=== PATIENT | female | born 1960 | race Two or more races ===

== ENCOUNTER 2024-07-09 15:10 | Outpatient (REF) | payer SELFPAY ==
[2024-07-09 16:19] LABS: MANUAL DIFF FLAG NO
[2024-07-09 16:23] LABS: Basophils Absolute Auto 0.1 X10*3/uL (0.0-0.2); Basophils Percent Auto 0.7 % (0-2); Eosinophils Absolute Auto 0.1 X10*3/uL (0.0-0.4); Eosinophils Percent Auto 1.4 % (0-4); Hematocrit 44.1 % (37.0-47.0); Hemoglobin 14.5 g/dl (12.0-16.0); Imm Gran Abs Auto 0.03 X10*3/uL (0.00-0.03); Imm Gran Pct Auto 0.4 % (0.0-0.4); Lymphocytes Absolute Auto 3.2 X10*3/uL (1.2-4.9); Lymphocytes Percent Auto 40.1 % (20-40); Mean Corpuscular HGB Conc 32.9 g/dl (31.0-35.0); Mean Corpuscular Hemoglobin 28.7 pg (27.0-33.0); Mean Corpuscular Volume 87.3 fL (80.0-98.0); Mean Platelet Volume 10.3 fL (9.4-12.3); Monocytes Absolute Auto 0.5 X10*3/uL (0.1-1.2); Monocytes Percent Auto 5.7 % (2-11); Neutrophils Absolute Auto 4.1 x10*3/uL (2.0-8.3); Neutrophils Percent Auto 51.7 % (45-73); Platelet Count 320 X10*3/uL (160-400); Red Blood Count 5.05 X10*6/uL (4.20-5.50)
[2024-07-09 16:40] LABS: Iron 90 mcg/dL (30-160); Percent Iron Saturation 33 % (15-50); Total Iron Binding Capacity 269 mcg/dL (228-428); Unsaturated Iron Binding 179 ug/dL
[2024-07-09 16:56] LABS: Ferritin 145 ng/mL (10-250)
[2024-07-09 17:10] LABS: Folate 15.3 ng/mL (> or = 4.0)
== END 2024-07-09 15:11 | disposition home or self-care (01) ==
LOC: HO.HHCL 15:10
PROVIDERS: Visit Provider Emergency Medicine
DX: K21.9 Gastro-esophageal reflux disease without esophagitis (principal); E61.1 Iron deficiency
CPT/HCPCS: 36415; 82728; 82746; 83540; 85025

== ENCOUNTER 2024-07-14 13:41 | Outpatient (REF) | payer MEDICAID, SELFPAY | END 2024-07-14 13:42 | disposition home or self-care (01) | LOC: HO.HHCLNP 13:41 | PROVIDERS: Visit Provider Emergency Medicine | DX: K21.9 Gastro-esophageal reflux disease without esophagitis (principal) | CPT/HCPCS: 87338 ==

== ENCOUNTER 2024-11-17 08:56 | Outpatient (AMB) | payer MEDICAID, SELFPAY ==
--- NOTE | 2024-11-17 08:57 | MHC.OFFVIS ---
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 Intake Note: New patient dx chest pain c/o chest pain for over year with our without activity last a few minutes and at times lasting longer Biology Specimen Technician Required: Yes Biology Specimen Technician Services: Biology Specimen Technician Offered & Declined Fish And Wildlife Scientific Aid: Fish And Wildlife Scientific Aid Present Accompanied by: Son Allergies Sulfa (Sulfonamide Antibiotics) Allergy (Mild, Verified 11/17/24 09:07) rash Medication List - Last Reconciled 11/17/24 by Patrick Anglin MD cholecalciferol (vitamin D3) 25 mcg PO DAILY hydrochlorothiazide 25 mg PO DAILY HPI Comments Details: Val is referred here for symptoms of chest pain and palpitations. She was 64-year-old female who since last February has been having symptoms of chest pain or palpitation. She was here with her son who will be an tip finisher and they declined a certified tip finisher. Patient says since February she has been having intermittent episodes of palpitations. Symptoms are described fast heart rate that happen randomly at rest. Symptoms can last for 5 minutes. Usually she relaxes and the symptoms subside. She also gets associated chest pressure. She also otherwise randomly gets retrosternal chest pressure at rest and with exercise. She was then diagnose with hypertension and a blood pressure has been better controlled and symptoms have improved although she continues to have these symptoms she was referred here for further evaluation. She says a blood pressure still remains elevated with occasionally blood pressure reading up to 150/100. However there was no correlation to blood pressure and her symptoms at this point in time. She denies any lightheadedness, syncope. Denies any orthopnea, PND, leg edema. She had some testing done in [place] and she is very unclear about the results. 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 [facility] Medical History (Updated 11/17/24 @ 09:35 by Patrick Anglin MD) HTN (hypertension) Surgical History Hx of hernia repair Family History Father CAD (coronary artery disease) Diabetes Mother Alzheimer dementia HTN (hypertension) Social History Patient Tobacco Use Status: Never used Tobacco Review of Systems Const Denies chills, Denies daytime sleepiness, Denies fatigue, Denies fever(s), Denies frequent falls, Denies poor appetite, Denies snoring, Denies stops breathing during sleep, Denies weakness, Denies weight gain and Denies weight loss Eyes Denies loss of vision ENT Denies dizziness and Denies hearing loss Card Reports chest pain, Denies claudication, Denies leg edema, Denies lightheadedness, Reports palpitations, Denies dyspnea, Denies dyspnea on exertion and Denies orthopnea Resp Denies cough, Denies excessive phlegm production, Denies dyspnea, Denies dyspnea on exertion, Denies snoring and Denies wheezing GI Denies abdominal pain, Denies hematochezia, Denies change in bowel habits, Denies nausea and Denies vomiting Denies urinary frequency and Denies dysuria Musc Denies arthralgias, Denies muscle weakness, Denies numbness and Denies other (frequent falls) Skin/Breast Denies nail changes and Denies rash Neuro Denies Abnormal speech present, Denies dizziness, Denies frequent falls, Denies loss of vision, Denies memory loss, Denies numbness and Denies weakness Psych Denies depression and Denies memory loss Endo Denies fatigue and Reports palpitations Neeraj/Lymph Reports easy bruising and Reports other (anemia) Aller/Immun Denies wheezing Physical Exam Vital Signs: Last Vital Signs Pulse 91 11/17/24 09:00 BP 120/72 11/17/24 09:00 BMI result Body Mass Index 24.9 Const General: cooperative, comfortable, no acute distress, well developed, alert, awake and Physically active Nutritional Appearance: average body habitus Orientation/consciousness: patient oriented x3 Limitations: no limitations HEENT Head: Yes normocephalic and Yes atraumatic Neck Neck: Yes trachea midline, Yes supple and Yes no JVD Resp Effort & Inspection: normal respiratory effort Auscultation: clear to auscultation bilaterally Cardio Jugular venous distension: no JVD Palpation: normal PMI Rate: regular rate Rhythm: regular rhythm Heart sounds: S1 normal heart sound present, S2 normal heart sound present, no click, no gallops, no murmurs and no rubs GI Auscultation: normal bowel sounds Skin General skin exam: no rashes or lesions noted Neuro General: patient oriented x3 and no focal motor deficits Speech: No Abnormal speech present Extrem General: Yes no clubbing, cyanosis or edema Psych Appearance: grossly normal Assessment & Plan Assessment & Plan (1) Chest pain: Code(s): R07.9 - Chest pain, unspecified Category: Medical Plan: Patient with chest pain syndrome with both typical and atypical features. He is very difficult to a certain whether she was underlying significant coronary artery disease. At this point time given her baseline normal EKG I would suggest her to undergo treadmill stress test in near future to assess for her symptoms. Also allow us to see what exercise capacity is in his there is any evidence of EKG changes that would suggest myocardial ischemia. This was discussed with her. She understands and agrees. Will try to review your echocardiogram performed in [place] although his mitral repeat her ultrasound to get a good ideas to underlying structural heart disease. This was discussed with her. Continue current blood pressure control which is well optimized on today's exam. Advised to continue monitor blood pressure if she remains persistently elevated may need addition of angiotensin receptor blockers for better control of blood pressure. Low-salt diet was discussed. (2) Palpitations: Code(s): R00.2 - Palpitations Category: Medical Plan: Symptoms of palpitation which are started since February. Do not appear to be stress related. Possible differential diagnose include SVT and/or atrial fibrillation. Also could represent sinus tachycardia which would be inappropriate. Will suggest a 7 day Holter monitor to further assess for the same. Further treatment based on the findings. Will not start any pharmacotherapy to we have an established diagnosis. Will follow up in the clinic in 3 weeks' time, sooner p.r.n.. Thank you for allowing me to partake in her care Coding Level of Care Code New Pt Level 4 (46797) Complex EM visit Add On G2211 Diagnoses Chest pain R07.9 Palpitations R00.2
[2024-11-17 09:00] VITALS: BP 120/72; PULSE 91; BMI 24.9
--- OUTSIDE RECORDS SUMMARY | 2024-11-17 09:47 | XMS_ITS | Clinical Summary ---
Author Organization [employer] Address [address] [place] [address] Care Team Providers Care Counsel Name Role Phone Unavailable Primary Care Provider Unavailabl e Allergies No known active allergies Medications Blood Pressure kit 1 each 2 times daily. 1 kit 4 07/09/20 25 Active cholecalciferol (Vitamin D-3) 25 MCG (1000 UT) tablet Take 1 tablet (25 mcg) by mouth Once per day. 30 tablet 5 4 Active lidocaine (Lidoderm) 5 % patch Apply 1 patch topically Once per day. Remove & discard patch within 12 hours or as directed by MD. 30 patch 2 4 07/09/20 25 Active acetaminophen (Tylenol) 500 MG tablet Take 2 tablets (1,000 mg) by mouth every 6 (six) hours if needed for moderate pain or fever for up to 25 doses. 50 tablet 4 Active hydroCHLOROthiazi de (HYDRODiuril) 25 MG tabletIndications :Primary hypertension Take 1 tablet (25 mg) by mouth Once per day. 30 tablet 11 4 07/25/20 25 Active Active Problems Problem Noted Date Diagnosed Date Primary hypertension 07/25/2024 Assessment & Plan (07/25/2024 4:25 PM EST): I will start her on hydrochlorothiazide 25mg daily, I instruct her to log her BP and come back for nurse visit if BP is not at goal plan is to increase hydrochlorothiazide to 50mg I advised: - Aerobic exercise to reduce BP. Initial goal of 30 min walk 3-5x/week. Increase as tolerated. - low-sodium diet (goal: <2g/day) and heart healthy diet such as DASH to reduce BP and prevent ASCVD. - Home BP monitoring 1-2 x day with goal of <140/90. - Seek immediate medical attention for chest pain, palpitations, SOB, syncope, or sudden changes in mental status. - Do not change or discontinue current prescriptions without first consulting health care provider Clogged ear, bilateral 07/25/2024 Assessment & Plan (07/25/2024 4:25 PM EST): On physical exam ears where completely clogged I prescribed debrox plan is to f/u with nurse for ear lavage Viral URI 07/25/2024 Assessment & Plan (07/25/2024 4:26 PM EST): Drink plenty of fluids and rest H/O unilateral oophorectomy 07/09/2024 Vitamin D deficiency 07/09/2024 Iron deficiency 07/09/2024 GERD (gastroesophageal reflux disease) Hypercholesterolemia 07/09/2024 Encounters Date Type Department Care Team Description 10/24/2024 Population Health Risk Score Community [facility] ([facility]) Department [address] [place] [id number] Provider, Population Health Generic from Last 3 Months Immunizations Name Administration Dates Next Due Zoster, Recombinant 10/27/2024 Social History Tobacco Use Types Packs/Day Years Used Date Smoking Tobacco: Never Smokeless Tobacco: Never Tobacco Cessation:Counseling Given: Not Answered Comments Unknown Sex and Gender Information Value Date Recorded Sex Assigned at Female 07/09/2024 12:33 PM EST Legal Sex Female 2:37 PM EST Gender Identity Female 07/09/2024 12:33 PM EST Sexual Orientation Straight 07/09/2024 12 :33 PM EST Last Filed Vital Signs Vital Sign Reading Time Taken Comments Blood Pressure 150/92 07/25/2024 1:44 PM EST Pulse 98 07/25/2024 1:38 PM EST Temperature 36.2 ??C (97.2 ??F) 07/25/2024 1:38 PM ES T Respiratory Rate 17 07/09/2024 1:56 PM EST Oxygen Saturation 98% 07/25/2024 1:38 PM EST Inhaled Oxygen Concentration - - Weight 71.9 kg (158 lb 9.6 oz) 07/09/2024 1:56 P M EST Height - - Body Mass Index - - Plan of Treatment Upcoming Encounters Date Type Department Care Team ([facility]ell st Contact Info) Description 12/30/2024 11:30 AM EDT Nurse Only [address] [address] Health Maintenance Due Date Last Done Comments CT Colonography 1962 Colonoscopy 1962 Colorectal Cancer Screening 1962 Depression Screening 1962 FIT DNA/Cologuard 1962 FIT 1962 FOBT 1962 HIV Screening 1962 Lipid Panel 1962 SDOH Screening 1962 Sigmoidoscopy 1962 Alcohol/Substance Use Screening 1974 Hepatitis C Screening 1980 DTaP/Tdap/Td Vaccines (1 - Tdap) 1981 Pap Smear 1983 Cervical Cancer Screening 1992 HPV/Cotest 1992 Mammogram 2002 Pneumococcal Vaccine: 50+ Ye ars (1 of 1 - PCV) 2012 COVID-19 Vaccine ( - 2023-2 5 season) 2024 Influenza Vaccine (#1) 2024 Zoster Vaccines (2 of 2) 12/22/2024 10/27/2024 Tobacco Screening 07/09/2025 07/09/2024 RSV Patients and Pa tients Aged 60 years or older (1 - 1-dose 75+ series) 2037 HIB Vaccines Aged Out No longer eligi ble based on patient's age to complete this topic HPV Vaccines Aged Out No longer eligi ble based on patient's age to complete this topic Hepatitis A Vaccines Aged Out No long er eligible based on patient's age to complete this topic Hepatitis B Vaccines Aged Out No long er eligible based on patient's age to complete this topic IPV Vaccines Aged Out No longer eligi ble based on patient's age to complete this topic Meningococcal Vaccine Aged Out No maria del carmen rm eligible based on patient's age to complete this topic RSV under 20 months Aged Out No longe r eligible based on patient's age to complete this topic Rotavirus Vaccines Aged Out No longer eligible based on patient's age to complete this topic Insurance [facility] C3
== END 2024-11-17 09:39 | disposition home or self-care (01) ==
PROVIDERS: PCP Emergency Medicine; Visit Provider Internal Medicine Cardiovascular Disease
DX: R07.9 Chest pain, unspecified (principal); R00.2 Palpitations
CPT/HCPCS: 99204

== ENCOUNTER → 2024-11-17 08:56 | Outpatient (BNVA) | payer MEDICAID, SELFPAY | PROVIDERS: PCP Emergency Medicine; Visit Provider Internal Medicine Cardiovascular Disease | DX: R07.9 Chest pain, unspecified (principal); R00.2 Palpitations; I10 Essential (primary) hypertension | CPT/HCPCS: 99202 ==

== ENCOUNTER 2024-11-19 06:49 | Outpatient (REF) | payer MEDICAID, SELFPAY ==
--- OUTSIDE RECORDS SUMMARY | 2024-11-19 06:51 | XMS_ITS | Clinical Summary ---
Author Organization [employer] Address [address] [place] [address] Care Team Providers Care Leaf Conditioner Name Role Phone Unavailable Primary Care Provider [...] Description 10/24/2024 Population Health Risk Score Community [facility] (C[facility]) Department [address] [place] [id number] Provider, Population Health Generic from Last [...] Description 12/30/2024 11:30 AM EDT Nurse Only [address] [address] Health Maintenance Due Date Last Done Comments [...] patient's age to complete this topic Insurance [facility] C3
[2024-11-19 07:53] LABS: Cholesterol 227 mg/dL (<200); HDL Cholesterol 55 mg/dL (>40); LDL Cholesterol Calculated 145 mg/dL (<100); Triglycerides 139 mg/dL (<150)
== END 2024-11-19 06:50 | disposition home or self-care (01) ==
LOC: HO.LAB 06:49
PROVIDERS: PCP Emergency Medicine; Visit Provider Internal Medicine Cardiovascular Disease
DX: I10 Essential (primary) hypertension (principal)
CPT/HCPCS: 36415; 80061

== ENCOUNTER → 2024-12-09 09:00 | Outpatient (REF) | payer MEDICAID, SELFPAY ==
--- NOTE | 2024-12-09 09:08 | CA_ITS ---
Acquisition Time: 2024-12-09 09:25:44 Total Exercise Time: 00:06:30 Test Indications: CP Medications: SEE H&P Protocol: AMBIKA Max HR: 148 BPM 93% of Pred: 158 BPM Max BP: 138/86 mmHG Max Work Load: 7.7 METS Exercise stress test with exercise 6 mins 30 secs of Ambika Protocl, achieving 91% MPHR, with reports of mild SOB, no chest pain, with isolated PVC, with normotensive response to exercise. Without EKG changes meeting criteria for ischemia. In recovery, breathing returned to baseline. Test reviewed with Dr. Cali. Referred By: Patrick Anglin Electronically Signed By: Sal Aponte
--- OUTSIDE RECORDS SUMMARY | 2024-12-09 09:35 | XMS_ITS | Clinical Summary ---
Author Organization [employer] Address [address] [place] [address] Care Team Providers Care Supervisor Ditching Name Role Phone Unavailable Primary Care Provider [...] Encounters Date Type Department Care Team Description 11/19/2024 Orders Only GENERIC EXTERNAL DATA DEPARTMENT Provider, Generic External Data 10/24/[address] [facility] () Department [address] [place] [id number] Provider, Population Health Generic from Last [...] Upcoming Encounters Date Type Department Care Team (Late st Contact Info) Description 12/30/2024 11:30 AM EDT Nurse Only [address] [address] Health Maintenance Due Date Last Done Comments CT Colonography 1962 Colonoscopy 1962 Colorectal Cancer Screening 1962 Depression Screening 1962 FIT DNA/Cologuard 1962 FIT 1962 FOBT 1962 HIV Screening 1962 SDOH Screening 1962 Sigmoidoscopy 1962 Alcohol/Substance [...] 2) 12/22/2024 10/27/2024 Tobacco Screening 07/09/2025 07/09/2024 Lipid Panel 11/19/2029 11/19/2024 RSV Patients and Pa tients Aged 60 [...] on patient's age to complete this topic Procedures Procedure Name Priority Date/Time Associated Diagnosis Comments LIPID PANEL, STANDARD Routine 11/19/2024 6:55 AM EDT from Last 3 Months Results * (ABNORMAL) Lipid Panel, Standard (11/19/2024 6:55 AM EDT) Triglycerides 139 <150 mg/dL [facility] Comment:Desirable Triglyceri de: less than 150 mg/dLBorderline High Triglyceride 150-199 mg/dLHigh Triglyceride: 200-499 mg/dLVery High Triglyceride: greater than or equal to 5OO mg/dL Cholesterol 227(H) <200 mg/dL [facility] Comment:Desirable Cholestero l: less than 200 mg/dLBorderline High Cholesterol: 200-239 mg/dLHigh Cholesterol: greater than 239 mg/dL LDL Cholesterol Calculated 145(H) <100 mg/dL [facility] Comment:Desirable LDL: less than 100 mg/dLNear Optimal/Above Optimal LDL: 110- 129 mg/dLBorderline High LDL: 130-159 mg/dLHigh LDL: 160-189 mg/dLVery High LDL: greater than or equal to 190 mg/dL HDL Cholesterol 55 >40 mg/dL [facility] Comment:Desirable HDL: great er than 40 mg/dL Note: This HDL assay may give artificially low results in patients with liver disease. 11/19/2024 6:55 AM EDT 11/19/2024 6:55 AM EDT us Generic External Data Provider LAB BLOOD ORDERAB LES Final Result [facility] [address] [place] [phone] from Last 3 Months Insurance [facility] C3
== END ==
LOC: HO.CARD 09:00
PROVIDERS: PCP Emergency Medicine; Visit Provider Internal Medicine Cardiovascular Disease
DX: R07.9 Chest pain, unspecified (principal); R00.2 Palpitations
CPT/HCPCS: 93017; 93242

== ENCOUNTER → 2024-12-09 09:08 | Outpatient (BNV) | payer MEDICAID, SELFPAY | PROVIDERS: PCP Emergency Medicine | DX: I49.3 Ventricular premature depolarization (principal) | CPT/HCPCS: 93016; 93018 ==

== ENCOUNTER 2024-12-25 12:46 | Outpatient (AMB) | payer MEDICAID, SELFPAY ==
[2024-12-25 13:03] VITALS: BP 122/60; PULSE 78; BMI 25.3
--- NOTE | 2024-12-25 13:03 | A.OFFVIS_ITS ---
Vital Signs 12/25/24 13:03 Height 5 ft 6 in Weight 156 lb 8.451 oz BMI 25.3 BP 122/60 Blood Pressure Location Lt brachial Position Sitting Pulse 78 Pulse Source Pulse Oximeter Intake Visit Reasons: r/s 12/09/24 3wks s/p ett/7 days NS Farm Marketer Required: Yes Farm Marketer Name: MARLY [id number] Allergies Iodinated Contrast Media Allergy (Severe, Verified 12/25/24 14:28) Facial Swelling Sulfa (Sulfonamide Antibiotics) Allergy (Mild, Verified 11/17/24 09:07) rash Medication List - Last Reconciled 12/25/24 by Sal Aponte NP cholecalciferol (vitamin D3) 25 mcg PO DAILY hydrochlorothiazide 25 mg PO DAILY HPI Comments Details: This is a 64-year-old female patient presenting for a follow-up visit. Patient is Citizen Of [place]-speaking and an web developer programmer was used throughout the visit. Patient with a history of hypertension and was previously evaluated for palpitations and chest discomfort. Since her last visit, she has undergone a Holter monitor and a stress test. Patient had an echo study in [place] a year ago. She reports ongoing left-sided chest discomfort primarily occurring at rest but also occasionally with exertion. This is accompanied by dizziness. She notes some improvement in her palpitations since her last visit. Patient is denying any orthopnea, PND, leg edema, presyncope, or syncope. Patient states that she is compliant with the medications. [facility] Medical History HTN (hypertension) Surgical History Hx of hernia repair Family History Father CAD (coronary artery disease) Diabetes Mother Alzheimer dementia HTN (hypertension) Social History Patient Tobacco Use Status: Never used Tobacco Review of Systems Const Denies weakness ENT Denies dizziness Card Denies chest pain, Denies chest pain with activity, Denies syncope, Denies rapid heart rate, Denies pedal edema, Denies edema, Denies leg edema, Denies lightheadedness, Denies palpitations, Denies dyspnea, Denies dyspnea on exertion and Denies orthopnea Resp Denies cough, Denies dyspnea and Denies dyspnea on exertion GI Denies hematochezia and Denies change in stool character Musc Denies abnormal gait, Denies muscle cramps, Denies muscle weakness, Denies numbness, Denies radiating pain into limb and Denies tingling Neuro Denies abnormal gait, Denies dizziness, Denies syncope, Denies numbness, Denies tingling and Denies weakness Endo Denies palpitations Physical Exam Vital Signs: Last Vital Signs Pulse 78 12/25/24 13:03 BP 122/60 12/25/24 13:03 BMI result Body Mass Index 25.3 Const General: cooperative, healthy appearing, comfortable and no acute distress Orientation/consciousness: patient oriented x3 HEENT Head: Yes normal to inspection Neck Neck: Yes normal visual inspection, Yes trachea midline and Yes supple Chest Chest palpation & inspection: normal inspection of the chest Resp Effort & Inspection: normal respiratory effort Auscultation: clear to auscultation bilaterally, no crackles, no rales, no rhonchi and no wheezes Cardio Jugular venous distension: no JVD Palpation: normal PMI Rate: regular rate Rhythm: regular rhythm Heart sounds: S1 normal heart sound present, S2 normal heart sound present, no click, no gallops, no murmurs and no rubs Peripheral pulses: Peripheral pulses 2+ throughout GI Inspection: Yes normal to inspection Palpation (GI): Soft to palpation Auscultation: normal bowel sounds Skin General skin exam: no rashes or lesions noted Neuro General: patient oriented x3 Extrem General: Yes normal to inspection, No no pedal edema and No calf tenderness Psych Appearance: grossly normal Mental Status: mental status grossly normal Speech and movement: Normal speech and movement present Assessment & Plan Assessment & Plan (1) Chest pain: Code(s): R07.9 - Chest pain, unspecified Category: Medical Plan: 05/07/2024-patient's echo study from [place] showed normal LV systolic function with the ejection fraction at 56%, with moderate mitral regurgitation, and mild tricuspid regurgitation. 12/09/2024-patient underwent a Holter study that showed baseline normal sinus rhythm with average heart rate of 82 beats per minute, with rare ectopy. 12/09/2024-patient also underwent a treadmill stress test with moderate workload with reports of mild shortness of breath, no chest pain, no EKG changes. Given the patient's ongoing symptoms of chest pain and dizziness alongside her risk of hypertension hyperlipidemia, we will proceed with a further evaluation using a coronary CTA. Patient has a history of contrast allergy with prior facial swelling, therefore, we will premedicate using standard contrast allergy prophylaxis. In addition to this, we will obtain an updated echocardiogram to evaluate for LV systolic and diastolic function, wall motion abnormalities, and valvular pathology. (2) Dizziness: Code(s): R42 - Dizziness and giddiness Category: Medical Plan: As above. (3) Hyperlipidemia: Code(s): E78.5 - Hyperlipidemia, unspecified Category: Medical Qualifiers: Hyperlipidemia type: mixed hyperlipidemia Qualified Code(s): E78.2 - Mixed hyperlipidemia Plan: Patient recently had a lipid profile checked and had very elevated LDL. We will start her on a statin therapy. We will check her labs in 3 months. Ideally, LDL goal closer to 70. (4) HTN (hypertension): Code(s): I10 - Essential (primary) hypertension Category: Medical Qualifiers: Hypertension type: unspecified Qualified Code(s): I10 - Essential (primary) hypertension Plan: Blood pressure today is well-controlled. Continue current regimen. Advised patient to monitor blood pressures at home and keep a log of it. Ideally, blood pressure goal less than 130/80. Advised heart healthy diet, regular exercise, med compliance, adequate hydration, and management of vascular risk factors. We will follow up in 3 months. In the interim, patient will call the office with any concerns or change in symptoms. Advised patient to seek ER care in case of persistent chest pain not resolved with rest. This note was generated using voice recognition software. While every effort has been made to ensure accuracy and proper conveyor feeder offbearer, there may be occasional errors that could affect the content or meaning of the described symptoms. Orders: Orders Lipid Panel 3 Months E78.5 - Hyperlipidemia, unspecified Basic Metabolic Panel Today R07.9 - Chest pain, unspecified Liver Panel Today E78.5 - Hyperlipidemia, unspecified CT Cardiac Coronary Angio Today R07.9 - Chest pain, unspecified, R42 - Dizziness and giddiness [place] echo transthoracic complete Today R42 - Dizziness and giddiness Medications: New famotidine TAKE ONE DAY BEFORE AND THE MORNING OF PROCEDURE 20 mg PO BID 3 tabs 0RF prednisone TAKE ONE DAY BEFORE PROCEDURE AND THE MORNING OF PROCEDURE 40 mg (2 x 20 mg) PO DAILY 6 tabs 0RF atorvastatin 40 mg PO DAILY 90 tabs 3RF diphenhydramine HCl TAKE ONE DAY BEFORE PROCEDURE AND THE MORNING OF PROCEDURE 50 mg PO BID PRN 3 tabs 0RF sleep Coding Level of Care Code Est Pt Level 4 (79511) Complex EM visit Add On G2211 Diagnoses Chest pain R07.9 Dizziness R42 Mixed hyperlipidemia E78.2 Hyperlipidemia type: mixed hyperlipidemia Hypertension, unspecified type I10 Hypertension type: unspecified Time Spent (min) 34 Comment Time spent in reviewing the chart, test results, assessment, counseling and documentation.
--- OUTSIDE RECORDS SUMMARY | 2024-12-25 13:24 | XMS_ITS | Clinical Summary ---
Author Organization [employer] Address [address] [place] [address] Care Team Providers Care Small Piece Cutter Name Role Phone Unavailable Primary Care Provider [...] External Data 10/24/2024 Population Health Risk Score [facility] () Department [address] [place] [id number] Provider, Population Health Generic from Last 3 Months Immunizations Immunization Administration Dates Next Due Zoster, Recombinant 10/27/2024 [...] Description 12/30/2024 11:30 AM EDT Nurse Only [address] [address] Health Maintenance Due Date Last Done Comments [...] patient's age to complete this topic Meningococcal B Vaccine Aged Out No l onger eligible based on patient's age to complete [...] 6:55 AM EDT) Triglycerides 139 <150 mg/dL [facility] Comment:Desirable Triglyceri de: less than 150 mg/dLBorderline High Triglyceride 150-199 mg/dLHigh Triglyceride: 200-499 mg/dLVery High Triglyceride: greater than or equal to 5OO mg/dL Cholesterol 227(H) <200 mg/dL [facility] Comment:Desirable Cholestero l: less than 200 mg/dLBorderline High Cholesterol: 200-239 mg/dLHigh Cholesterol: greater than 239 mg/dL LDL Cholesterol Calculated 145(H) <100 mg/dL [facility] Comment:Desirable LDL: less than 100 mg/dLNear Optimal/Above Optimal LDL: 110- 129 mg/dLBorderline High LDL: 130-159 mg/dLHigh LDL: 160-189 mg/dLVery High LDL: greater than or equal to 190 mg/dL HDL Cholesterol 55 >40 mg/dL [facility] Comment:Desirable HDL: great er than 40 mg/dL Note: This HDL assay may give artificially low results in patients with liver disease. 11/19/2024 6:55 AM EDT 11/19/2024 6:55 AM EDT us Generic External Data Provider LAB BLOOD ORDERAB LES Final Result [facility] [address] [place] [address] [phone] from Last 3 Months Insurance [facility] C3
== END 2024-12-25 13:44 | disposition home or self-care (01) ==
LOC: HO.HCS 12:47
PROVIDERS: PCP Emergency Medicine
DX: R07.9 Chest pain, unspecified (principal); R42 Dizziness and giddiness; E78.2 Mixed hyperlipidemia; I10 Essential (primary) hypertension
CPT/HCPCS: 99214

== ENCOUNTER → 2024-12-25 12:46 | Outpatient (BNVA) | payer MEDICAID, SELFPAY | PROVIDERS: PCP Emergency Medicine | DX: I10 Essential (primary) hypertension (principal); R00.2 Palpitations; R07.9 Chest pain, unspecified; R42 Dizziness and giddiness; E78.2 Mixed hyperlipidemia | CPT/HCPCS: 99212 ==

== ENCOUNTER → 2025-02-23 11:01 | Outpatient (REF) | payer MEDICAID, SELFPAY ==
--- NOTE | 2025-02-23 11:04 | CA_ITS ---
Transthoracic Echocardiogram Patient (Last, First, Middle): Val Romero, Gender: Female Date of : 1960 Age: 64 Procedure Date: 02/23/2025 Procedure Type: Transthoracic Echocardiogram Location: OP Height: 167. cm Weight: 69.4 kg BSA: 1.78 m2 Heart Rate: 78 bpm BP: 110 / 75 mmHg Senior Systems Administrator: [facility] Referring MD: Sal Aponte NP Symptoms: R42 - Dizziness and giddiness Study Quality: Fair ECG Rhythm: Sinus Conclusions: - The left ventricular systolic function is normal. The calculated ejection fraction is 60% by biplane method. - No obvious valvular pathology seen on this study. Findings Left Ventricle Normal left ventricular cavity size. There is normal left ventricular wall thickness. The left ventricular systolic function is normal. The calculated ejection fraction is 60% by biplane method. There is no evidence of regional wall motion abnormalities. Diastolic function is normal for age. Right Ventricle Normal right ventricular cavity size and systolic function. Atria Both atria are normal in size. Aortic Valve There is a normal trileaflet aortic valve. There is no aortic valve stenosis. There is no aortic valve regurgitation. Mitral Valve The mitral valve appears normal. There is trace mitral valve regurgitation. There is no mitral valve stenosis. Pulmonic Valve The pulmonic valve is likely normal. Tricuspid Valve There is trace tricuspid valve regurgitation. There is no evidence of pulmonary hypertension. Great Vessels The asc aorta and aortic arch are normal in size. Venous The inferior vena cava is normal in size and collapses greater than 50% with inspiration. Pericardium/Pleural There is no evidence of pericardial effusion. Prior Study Comparison No prior study available for comparison. Recommendations, Care & Conclusions No obvious valvular pathology seen on this study. Measurements 2D Linear Measurements IVSd: 0.91 0.6-0.9/0.6-1.0 cm LVIDd: 4.17 3.9-5.3/4.2-5.9 cm LVIDd Index: 2.34 2.4-3.2/2.2-3.1 cm/m2 LVIDs: 2.82 2.0-3.6 cm LVPWd: 0.85 0.7-1.1 cm LA Diam: 2.40 2.7-3.8/3.0-4.0 cm LAIDs Index: 1.35 1.5-2.3 cm/m2 LV Mass: 141.35 67-162/88-224 g LV Mass Index: 79.41 43-95/49-115 g/m2 LVOT Diam: 2.00 3.0+(-)1.3 cm 2D Systolic Function EF 4C: 62.40 >55% EF 2C: 54.50 >55% EF BiP: 59.70 >55% Mitral Valve MV Pk E: 0.72 MV PK A: 0.99 MV Decel Time: 235.00 E/A: 0.70 E'Lateral: 7.83 E'Medial: 5.11 E/E' Med: 14.10 E/E' Lat: 9.20 PHT: 69.00 MVA PHT: 3.19 Decel Yuba: 3.07 Aortic Valve AoV Pk Eulalio: 0.98 AoV Mn Eulalio: 0.70 AoV VTI: 0.19 AoV Pk Grad: 4.00 Aov Mn Grad: 2.00 BIMAL Cont.VTI: 2.42 LVOT LVOT Pk Eulalio: 0.82 LVOT Mn Eulalio: 0.54 LVOT VTI: 0.15 LVOT Pk Grad: 3.00 LVOT Mn Grad: 1.00 LVOT Diam: 2.00 LVOT Area: 3.14 Diastolic Function MV Pk E: 0.72 MV Pk A: 0.99 E/A: 0.70 E'Medial: 5.11 E/E' Med: 14.10 E' Laterial: 7.83 E/E' Lat: 9.20 Right Ventricle TAPSE (mm): 18.70 TVS' Eulalio: 10.10 Tricuspid Valve RA Press: 3.00 Great Vessels Aorta Sinus of Valsalva: 3.10 2.0-3.5 cm Ao Asc: 3.40 2.1-3.4 cm Ao Arch: 2.60 Pulmonary Valve PV Pk Eulalio: 0.87 Peak PV Grad: 3.00 Updated in Other Vendor System with Status of Final Erlin Pantoja MD electronically signed on 02/23/2025 4:12:13 PM with status of Final
--- OUTSIDE RECORDS SUMMARY | 2025-02-23 12:05 | XMS_ITS | Clinical Summary ---
Author Organization [employer] Address [address] [place] [address] Care Team Providers Care Head Coach Name Role Phone Unavailable Primary Care Provider [...] 07/09/2024 GERD (gastroesophageal reflux disease) Hypercholesterolemia 07/09/2024 Immunizations Immunization Administration Dates Next Due Zoster, Recombinant 12/30/2024,10/27/2024 Social History Tobacco Use Types Packs/Day Years [...] 98 07/25/2024 1:38 PM EST Temperature 36.2 C (97.2 F) 07/25/2024 1:38 PM EST Respiratory Rate 17 07/09/2024 1:56 PM EST Oxygen Saturation 98% 07/25/2024 1:38 PM EST Inhaled Oxygen Concentration - - Weight 71.9 kg (158 lb 9.6 oz) 07/09/2024 1:56 P M EST Height - - Body Mass Index - - Plan of Treatment Health Maintenance Due Date Last Done Comments CT Colonography 1960 Colonoscopy 1960 Colorectal Cancer Screening 1960 Depression Screening 1960 FIT DNA/Cologuard 1960 FIT 1960 FOBT 1960 HIV Screening 1960 SDOH Screening 1960 Sigmoidoscopy 1960 Alcohol/Substance Use Screening 1974 Hepatitis C Screening 1980 DTaP/Tdap/Td Vaccines (1 - Tdap) 1981 Pap Smear 1983 Cervical Cancer Screening 1992 HPV/Cotest 1992 Mammogram 2002 Pneumococcal Vaccine: 50+ Years (1 of 1 - PCV) 2012 COVID-19 Vaccine (2023-2 5 season) 2024 Influenza Vaccine (#1) 2025 Tobacco Screening 07/09/2025 07/09/2024 Disability Screening 08/07/2025 08/07/2024 Lipid Panel 11/19/2029 11/19/2024 RSV Patients and Patients Aged 60 years or older (1 - 1-dose 75+ series) 2037 Zoster Vaccines Completed 12/30/2024, 10/27/2024 HIB Vaccines Aged Out No longer eligi [...] 6:55 AM EDT from Last 3 Months or Most Recently Relevant to Health Maintenance Results * (ABNORMAL) Lipid Panel, Standard (11/19/2024 6:55 AM EDT) Triglycerides 139 <150 mg/dL [facility] Comment:Desirable Triglyceri de: less than 150 mg/dLBorderline High Triglyceride 150-199 mg/dLHigh Triglyceride: 200-499 mg/dLVery High Triglyceride: greater than or equal to 5OO mg/dL Cholesterol 227(H) <200 mg/dL [facility] Comment:Desirable Cholestero l: less than 200 mg/dLBorderline High Cholesterol: 200-239 mg/dLHigh Cholesterol: greater than 239 mg/dL LDL Cholesterol Calculated 145(H) <100 mg/dL [facility] Comment:Desirable LDL: less than 100 mg/dLNear Optimal/Above Optimal LDL: 110- 129 mg/dLBorderline High LDL: 130-159 mg/dLHigh LDL: 160-189 mg/dLVery High LDL: greater than or equal to 190 mg/dL HDL Cholesterol 55 >40 mg/dL [facility] Comment:Desirable HDL: great er than 40 mg/dL Note: This HDL assay may give artificially low results in patients with liver disease. 11/19/2024 6:55 AM EDT 11/19/2024 6:55 AM EDT us Generic External Data Provider LAB BLOOD ORDERAB LES Final Result [facility] [address] [place] [address] [phone] from Last 3 Months or Most Recently Relevant to Health Maintenance Insurance [employer] C3
== END ==
LOC: HO.CARD 11:01
PROVIDERS: PCP Emergency Medicine
DX: R42 Dizziness and giddiness (principal)
CPT/HCPCS: 93306

== ENCOUNTER → 2025-02-23 11:04 | Outpatient (BNV) | payer MEDICAID, SELFPAY | PROVIDERS: PCP Emergency Medicine; Visit Provider Internal Medicine | DX: R42 Dizziness and giddiness (principal) | CPT/HCPCS: 93306 ==

== ENCOUNTER 2025-04-08 13:51 | Outpatient (AMB) | payer MEDICAID, SELFPAY ==
--- NOTE | 2025-04-08 13:55 | A.OFFVIS_ITS ---
Vital Signs 04/08/25 13:56 Height 5 ft 6 in Weight 152 lb 1.903 oz BMI 24.5 BP 120/72 Blood Pressure Location Lt brachial Position Sitting Pulse 90 Intake Visit Reasons: 3mth-cta 03/25 Intake Note: 3 month follow-up after CTA c/o GERD since CTA Sizing Machine And Drier Operator Required: Yes Sizing Machine And Drier Operator Services: Sizing Machine And Drier Operator Present Sizing Machine And Drier Operator Name: maldonado Smith Allergies Iodinated Contrast Media Allergy (Severe, Verified 12/25/24 14:28) Facial Swelling Sulfa (Sulfonamide Antibiotics) Allergy (Mild, Verified 11/17/24 09:07) rash Medication List - Last Reconciled 04/08/25 by Sal Aponte NP atorvastatin 40 mg PO DAILY cholecalciferol (vitamin D3) 25 mcg PO DAILY diphenhydramine HCl 50 mg PO BID PRN famotidine 20 mg PO BID hydrochlorothiazide 25 mg PO DAILY HPI Comments Details: This is a 64-year-old female patient coming in for a follow-up visit. Patient is Swedish-speaking and an independent living advisor was used throughout the visit. Patient with a history of hypertension and hyperlipidemia who was previously seen in the office for ongoing chest discomfort. Subsequently patient has undergone a stress test and a Holter study and given her ongoing symptoms patient underwent a coronary CTA. Today, patient reports resolution of the chest discomfort but had an episode of palpitations that woke her up at night. Patient is otherwise denying any exertional chest pain, shortness of breath, dizziness, orthopnea, PND, leg edema, presyncope or syncope. Patient is reporting compliance with her medications. [facility] Medical History HTN (hypertension) Surgical History Hx of hernia repair Family History Father CAD (coronary artery disease) Diabetes Mother Alzheimer dementia HTN (hypertension) Social History Patient Tobacco Use Status: Never used Tobacco Review of Systems Const Denies chills, Denies fatigue, Denies fever(s), Denies frequent falls, Denies weakness, Denies weight gain and Denies weight loss ENT Denies dizziness Card Denies chest pain, Denies leg edema, Denies lightheadedness, Denies palpitations, Denies dyspnea, Denies dyspnea on exertion, Denies orthopnea and Denies other (loss of consciousness) Resp Denies cough, Denies dyspnea and Denies dyspnea on exertion GI Denies hematochezia and Denies change in stool character Musc Denies abnormal gait, Denies muscle weakness, Denies numbness, Denies radiating pain into limb and Denies tingling Neuro Denies abnormal gait, Denies dizziness, Denies frequent falls, Denies numbness, Denies tingling and Denies weakness Endo Denies fatigue and Denies palpitations Physical Exam Vital Signs: Last Vital Signs Pulse 90 04/08/25 13:56 BP 120/72 04/08/25 13:56 BMI result Body Mass Index 24.5 Const General: cooperative, healthy appearing, comfortable and no acute distress Orientation/consciousness: patient oriented x3 HEENT Head: Yes normal to inspection Neck Neck: Yes normal visual inspection, Yes trachea midline and Yes supple Chest Chest palpation & inspection: normal inspection of the chest Resp Effort & Inspection: normal respiratory effort Auscultation: clear to auscultation bilaterally, no crackles, no rales, no rhonchi and no wheezes Cardio Jugular venous distension: no JVD Palpation: normal PMI Rate: regular rate Rhythm: regular rhythm Heart sounds: S1 normal heart sound present, S2 normal heart sound present, no click, no gallops, no murmurs and no rubs Peripheral pulses: Peripheral pulses 2+ throughout GI Inspection: Yes normal to inspection Palpation (GI): Soft to palpation Auscultation: normal bowel sounds Skin General skin exam: no rashes or lesions noted Neuro General: patient oriented x3 Extrem General: Yes normal to inspection, No no pedal edema and No calf tenderness Psych Appearance: grossly normal Mental Status: mental status grossly normal Speech and movement: Normal speech and movement present Assessment & Plan Assessment & Plan (1) Chest pain: Code(s): R07.9 - Chest pain, unspecified Category: Medical (2) HTN (hypertension): Code(s): I10 - Essential (primary) hypertension Category: Medical Qualifiers: Hypertension type: unspecified Qualified Code(s): I10 - Essential (primary) hypertension (3) Hyperlipidemia: Code(s): E78.5 - Hyperlipidemia, unspecified Category: Medical Qualifiers: Hyperlipidemia type: mixed hyperlipidemia Qualified Code(s): E78.2 - Mixed hyperlipidemia Plan 05/07/2024-patient's echo study from [place] showed normal LV systolic function with the ejection fraction at 56%, with moderate mitral regurgitation, and mild tricuspid regurgitation. 12/09/2024-patient underwent a Holter study that showed baseline normal sinus rhythm with average heart rate of 82 beats per minute, with rare ectopy. 12/09/2024-patient also underwent a treadmill stress test with moderate workload with reports of mild shortness of breath, no chest pain, no EKG changes. 03/26/2025-patient underwent a coronary CTA that showed no significant coronary artery disease. Given her above findings and resolution of her symptoms, no further testing indicated at this time. Patient does have some anxiety and her episode of palpitations could be related to anxiety. Have recommended adequate rest hydration, avoiding caffeinated beverages, and stress medication strategies. Patient's lipid profile was elevated and therefore patient is now on statin therapy. Continue this with the LDL goal less than 100. Patient will repeat her lipid profile and follow up with PCP. Blood pressure is well-controlled. Continue hydrochlorothiazide. Advised monitoring blood pressures with a goal less than 130/80. Advised heart healthy diet, regular exercise, adequate hydration, med compliance, and management of vascular risk factors. Follow up in the office on an as-needed basis. In the interim, patient will call the office with any concerns or change in symptoms. This note was generated using voice recognition software. While every effort has been made to ensure accuracy and proper sand drier, there may be occasional errors that could affect the content or meaning of the described symptoms. Coding Level of Care Code Est Pt Level 3 (51932) Complex EM visit Add On G2211 Diagnoses Chest pain R07.9 Hypertension, unspecified type I10 Hypertension type: unspecified Mixed hyperlipidemia E78.2 Hyperlipidemia type: mixed hyperlipidemia Time Spent (min) 29
[2025-04-08 13:56] VITALS: BP 120/72; PULSE 90; BMI 24.5
--- OUTSIDE RECORDS SUMMARY | 2025-04-08 14:44 | XMS_ITS | Clinical Summary ---
Author Organization [employer] Address [address] [place] [address] Care Team Providers Care Supervisor Gas Meter Repair Name Role Phone Unavailable Primary Care Provider [...] Meningococcal Vaccine Aged Out No maria del acrmen rm eligible based on patient's age to [...] 6:55 AM EDT) Triglycerides 139 <150 mg/dL [facility] Comment:Desirable Triglyceri de: less than 150 mg/dLBorderline High Triglyceride 150-199 mg/dLHigh Triglyceride: 200-499 mg/dLVery High Triglyceride: greater than or equal to 5OO mg/dL Cholesterol 227(H) <200 mg/dL [facility] Comment:Desirable Cholestero l: less than 200 mg/dLBorderline High Cholesterol: 200-239 mg/dLHigh Cholesterol: greater than 239 mg/dL LDL Cholesterol Calculated 145(H) <100 mg/dL [facility] Comment:Desirable LDL: less than 100 mg/dLNear Optimal/Above Optimal LDL: 110- 129 mg/dLBorderline High LDL: 130-159 mg/dLHigh LDL: 160-189 mg/dLVery High LDL: greater than or equal to 190 mg/dL HDL Cholesterol 55 >40 mg/dL [facility] Comment:Desirable HDL: great er than 40 mg/dL Note: This HDL assay may give artificially low results in patients with liver disease. 11/19/2024 6:55 AM EDT 11/19/2024 6:55 AM EDT us Generic External Data Provider LAB BLOOD ORDERAB LES Final Result [facility] [address] [place] [address] [phone] from Last 3 Months or Most Recently Relevant to Health Maintenance Insurance [employer] C3
== END 2025-04-08 14:23 | disposition home or self-care (01) ==
LOC: HO.HCS 13:52
PROVIDERS: PCP Emergency Medicine
DX: R07.9 Chest pain, unspecified (principal); I10 Essential (primary) hypertension; E78.2 Mixed hyperlipidemia
CPT/HCPCS: 99213

== ENCOUNTER → 2025-04-08 13:51 | Outpatient (BNVA) | payer MEDICAID, SELFPAY | PROVIDERS: PCP Emergency Medicine | DX: R07.9 Chest pain, unspecified (principal); I10 Essential (primary) hypertension; E78.2 Mixed hyperlipidemia | CPT/HCPCS: 99212 ==